=== PATIENT | male | born 1975 | race Caucasian/White ===

== ENCOUNTER → 2017-10-31 | Outpatient (CLI) | payer OTHER | LOC: MHCPAIN 08:26 | DX: G89.29 Other chronic pain (principal); M47.817 Spondylosis without myelopathy or radiculopathy, lumbosacral region; M54.16 Radiculopathy, lumbar region; M53.3 Sacrococcygeal disorders, not elsewhere classified | CPT/HCPCS: G0463 ==

== ENCOUNTER → 2017-11-07 | Outpatient (CLI) | payer OTHER | LOC: MHCPAIN | DX: M54.16 Radiculopathy, lumbar region (principal) | CPT/HCPCS: J1100; Q9967 ==

== ENCOUNTER 2017-11-15 09:21 | Day surgery (SDC) | payer OTHER ==
[~2017-11-15] VITALS: Ht 182.9 cm; Wt 116.4 kg
[2017-11-15 09:40] VITALS: BP 152/90; PULSE 74; TEMP 98.1
[2017-11-15] MEDS ORDERED: ALLEGRA ALLERG180 MG PO (09:43)
[2017-11-15 11:05] VITALS: BP 133/94; PULSE 75; TEMP 97.3
[2017-11-15 11:20] VITALS: BP 118/85; PULSE 62
[2017-11-15 11:35] VITALS: BP 109/75; PULSE 59
== END 2017-11-15 12:05 | disposition home or self-care (01) ==
LOC: SDCO 09:21
DX: K51.00 Ulcerative (chronic) pancolitis without complications (principal); Z83.79 Family history of other diseases of the digestive system
CPT/HCPCS: J2250; J3010; J7030

== ENCOUNTER → 2017-11-23 | Outpatient (CLI) | payer OTHER ==
[~2017-11-23] MED LIST: ALLEGRA ALLERG180 MG PO
== END ==
LOC: MHCPAIN 09:34
DX: G89.29 Other chronic pain (principal); M47.817 Spondylosis without myelopathy or radiculopathy, lumbosacral region; M54.16 Radiculopathy, lumbar region; M53.3 Sacrococcygeal disorders, not elsewhere classified
CPT/HCPCS: G0463

== ENCOUNTER → 2017-11-24 | Outpatient (CLI) | payer OTHER | LOC: MHCPAIN 12:51 | DX: M54.16 Radiculopathy, lumbar region (principal); M47.817 Spondylosis without myelopathy or radiculopathy, lumbosacral region | CPT/HCPCS: J1040; Q9967 ==

== ENCOUNTER → 2017-12-21 | Outpatient (CLI) | payer OTHER | LOC: MHCPAIN 08:43 | DX: G89.29 Other chronic pain (principal); M47.817 Spondylosis without myelopathy or radiculopathy, lumbosacral region; M54.16 Radiculopathy, lumbar region; M53.3 Sacrococcygeal disorders, not elsewhere classified | CPT/HCPCS: G0463 ==

== ENCOUNTER → 2017-12-22 | Outpatient (CLI) | payer OTHER | LOC: MHCPAIN 12:29 | DX: M47.817 Spondylosis without myelopathy or radiculopathy, lumbosacral region (principal); M54.16 Radiculopathy, lumbar region | CPT/HCPCS: J1040; Q9967 ==

== ENCOUNTER → 2018-02-14 | Outpatient (CLI) | payer OTHER | LOC: MHCPAIN 08:44 | DX: G89.29 Other chronic pain (principal); M47.817 Spondylosis without myelopathy or radiculopathy, lumbosacral region; M54.16 Radiculopathy, lumbar region; M53.3 Sacrococcygeal disorders, not elsewhere classified | CPT/HCPCS: G0463 ==